=== PATIENT | female | born 1945 | race American Indian/Alaskan Native ===

== ENCOUNTER 2017-06-21 18:34 | Emergency (ER) | payer MEDICARE ==
[2017-06-21 18:34] VITALS: BMI 41.8
[2017-06-21 18:42] VITALS: BP 150/85; PULSE 71; RESP 16; TEMP 98.2; O2SAT 96
[2017-06-21] MEDS ORDERED: TDAP Vaccine 0.5 mL Syr IM ONE (19:07)
--- NOTE | 2017-06-21 19:10 | ED PDOC ---
Arrival/HPI - General Chief Complaint: Abnormal Skin Integrity Time Seen by Provider: 06/21/17 19:07 Historian: Patient - History of Present Illness Narrative History of Present Illness (Text): 06/21/17 19:07 This 71 yo female presents to this emergency department complaining of left index finger laceration x [employer]. Patient stated while attempting to cut with a "clean kitchen knife", she accidentally cut left index finger tip. Patient denies other somatic complains. Last tetanus is ukn. Patient stated she is afraid of "needles", and she refused to have sutures, but she is asking for "glue" Time/Duration: Other (see hpi) Context: Home Past Medical History - Provider Review Nursing Documentation Reviewed: Yes - Infectious Disease Hx of Infectious Diseases: None - Cardiac Hx Cardiac Disorders: Yes Hx Hypertension: Yes - Pulmonary Hx Respiratory Disorders: Yes Hx Chronic Obstructive Pulmonary Disease (COPD): (sleep apnea) - Neurological Hx Neurological Disorder: No - HEENT Hx HEENT Disorder: No - Renal Hx Renal Disorder: No - Endocrine/Metabolic Hx Endocrine Disorders: No - Hematological/Oncological Hx Blood Disorders: No - Integumentary Hx Dermatological Disorder: No - Musculoskeletal/Rheumatological Hx Musculoskeletal Disorders: Yes Hx Arthritis: Yes - Gastrointestinal Hx Gastrointestinal Disorders: Yes Hx Gastroesophageal Reflux: Yes - Genitourinary/Gynecological Hx Genitourinary Disorders: Yes Other/Comment: FREQUENCY OF URINATION - Psychiatric Hx Psychophysiologic Disorder: No Hx Substance Use: No - Surgical History Other/Comment: BILATERAL KNEE REPLACED YEARS AGO - Anesthesia Hx Anesthesia: Yes Hx Anesthesia Reactions: No Family/Social History - Physician Review Nursing Documentation Reviewed: Yes Family/Social History: Other (noncontributory) Smoking Status: Never Smoked Hx Alcohol Use: No Hx Substance Use: No Allergies/Home Meds Allergies/Adverse Reactions: Allergies No Known Allergies Allergy (Verified 10/21/15 07:48) Home Medications: Home Meds Medication Instructions Recorded Confirmed Aspirin/Calcium Carbonate [Eliceo 1 each PO DAILY 10/21/15 06/21/17 Women's Aspirin Tablet] Furosemide [Lasix] 40 mg PO DAILY 10/21/15 06/21/17 Metoprolol Tartrate 100 mg PO DAILY 10/21/15 06/21/17 Omeprazole 40 mg PO DAILY 10/21/15 06/21/17 Potassium Chloride 20 meq PO DAILY 10/21/15 06/21/17 Simvastatin 10 mg PO DAILY 10/21/15 06/21/17 amLODIPine [Norvasc] 10 mg PO DAILY 10/21/15 06/21/17 Review of Systems - Review of Systems Constitutional: Normal. absent: Fatigue, Weight Change, Fevers Eyes: Normal ENT: Normal Respiratory: Normal Cardiovascular: Normal Gastrointestinal: Normal Genitourinary Female: Normal Musculoskeletal: Normal Skin: Laceration (see hpi) Neurological: Normal Endocrine: Normal Hemo/Lymphatic: Normal Psychiatric: Normal Physical Exam Vital Signs Temp Pulse Resp BP Pulse Ox 06/21/17 18:37 98.2 F 71 16 150/85 96 Temperature: Afebrile Blood Pressure: Normal Pulse: Regular Respiratory Rate: Normal Appearance: Positive for: Well-Appearing, Non-Toxic, Comfortable Pain Distress: None Mental Status: Positive for: Alert and Oriented X 3 - Systems Exam Head: Present: Atraumatic, Normocephalic Pupils: Present: PERRL Extroacular Muscles: Present: EOMI Conjunctiva: Present: Normal Mouth: Present: Moist Mucous Membranes Upper Extremity: Present: Normal ROM, NORMAL PULSES, Neurovascularly Intact, Capillary Refill < 2s, Other ((+) transverse superficial laceration on left 2nd finger, palmar aspect. No actively bleeding.). No: Cyanosis, Edema, Tenderness , Swelling, Erythema Lower Extremity: Present: Normal Inspection Neurological: Present: GCS=15, CN II-XII Intact, Speech Normal, Motor Func Grossly Intact, Normal Sensory Function, Normal Cerebellar Funct, Gait Normal, Memory Normal Skin: Present: Warm, Dry, Normal Color. No: Rashes Psychiatric: Present: Alert, Oriented x 3, Normal Insight, Normal Concentration Medical Decision Making ED Course and Treatment: 06/21/17 19:50 Re-evaluation. Patient feels better. Discussed results and plan with patient who expresses understanding. All questions answered and there is agreement with the plan to discharge home with instructions. Patient stable for discharge. Return if symptoms persist or worsen. Patient refused sutures. She preferred glue. Dermabond was use to approximate wound. Patient was recommended to follow up pmd in 2-3 days for wound check. To return to emergency department if wound becomes infected. Re-evaluation Time: 19:50 Reassessment Condition: Re-examined, Improved - Medication Orders Current Medication Orders: Discontinued Medications Cephalexin Monohydrate (Keflex) 500 mg PO STAT STA PRN Reason: Protocol Stop: 06/21/17 19:08 Last Admin: 06/21/17 19:17 Dose: 500 mg Tetanus/Reduced Diphtheria/Acell Pertussis (Boostrix Vaccine Inj) 0.5 ml IM .ONCE ONE Stop: 06/21/17 19:08 Last Admin: 06/21/17 19:17 Dose: 0.5 ml MAR Immunization Data Document 06/21/17 19:17 [place] (Rec: 06/21/17 19:17 [place] [id number] Immunization Data Vaccine Information Sheet Given Yes Immunization Registry Document 06/21/17 19:17 [place] (Rec: 06/21/17 19:17 [place] [id number] Immunization Registry Consent Date 05/15/17 Disposition/Present on Arrival - Present on Arrival Any Indicators Present on Arrival: No History of DVT/PE: No History of Uncontrolled Diabetes: No Urinary Catheter: No History of Decub. Ulcer: No History Surgical Site Infection Following: None - Disposition Have Diagnosis and Disposition been Completed?: Yes Diagnosis: Finger laceration Disposition: HOME/ ROUTINE Disposition Time: 19:54 Patient Plan: Discharge Condition: GOOD Discharge Instructions (ExitCare): Laceration Repair With Glue (DC) Additional Instructions: Call private doctor for follow up visit in 2-3 days. keep wound clean and dry for 3 days, then clean wound with soap and water. Do not apply Vaseline or cream or topical antibiotic on the glue. Return to emergency if wound becomes infected. Prescriptions: Cephalexin [cephalexin] 500 mg PO QID #20 cap Referrals: Denise Kathleen MD [Primary Care Provider] - Follow up with primary Forms: [email or web address] ([employer])
== END 2017-06-21 20:05 | disposition home or self-care (01) ==
LOC: ED 18:34
DX: S61.211A Laceration without foreign body of left index finger without damage to nail, initial encounter (principal); W26.0XXA Contact with knife, initial encounter; Y92.009 Unspecified place in unspecified non-institutional (private) residence as the place of occurrence of the external cause; I10 Essential (primary) hypertension; J44.9 Chronic obstructive pulmonary disease, unspecified; G47.30 Sleep apnea, unspecified; Z23 Encounter for immunization

== ENCOUNTER 2018-02-17 08:25 | Observation (INO) | payer MEDICARE, OTHER ==
--- NOTE | 2018-02-17 08:40 | ED PDOC ---
Arrival/HPI - General Chief Complaint: Shortness Of Breath Time Seen by Provider: 02/17/18 08:27 Historian: Patient - History of Present Illness Narrative History of Present Illness (Text): 02/17/18 08:40 72 f with pmhx of hypertension and PVCs presents to the ED with shortness of breath and palpitations since earlier this morning. Patient reports she thought she heard someone screaming and realized it was herself. Patient states she is currently not experiencing any palpitations. Patient notes the swelling in her legs is normal. Patient denies fever, chest pain, nausea, vomiting or any other complaints. PMD: Denise Frazier Time/Duration: 4-6 hours (earlier this morning) Symptom Onset: Sudden Symptom Course: Improving Activities at Onset: Light Context: Home Past Medical History - Provider Review Nursing Documentation Reviewed: Yes - Infectious Disease Hx of Infectious Diseases: None - Reproductive Menopause: Yes - Cardiac Hx Cardiac Disorders: Yes Hx Hypertension: Yes - Pulmonary Hx Respiratory Disorders: Yes Hx Chronic Obstructive Pulmonary Disease (COPD): (sleep apnea) - Neurological Hx Neurological Disorder: No - HEENT Hx HEENT Disorder: No - Renal Hx Renal Disorder: No - Endocrine/Metabolic Hx Endocrine Disorders: No - Hematological/Oncological Hx Blood Disorders: No - Integumentary Hx Dermatological Disorder: No - Musculoskeletal/Rheumatological Hx Musculoskeletal Disorders: Yes Hx Arthritis: Yes - Gastrointestinal Hx Gastrointestinal Disorders: Yes Hx Gastroesophageal Reflux: Yes - Genitourinary/Gynecological Hx Genitourinary Disorders: Yes Other/Comment: FREQUENCY OF URINATION - Psychiatric Hx Psychophysiologic Disorder: No Hx Substance Use: No - Surgical History Other/Comment: BILATERAL KNEE REPLACED YEARS AGO - Anesthesia Hx Anesthesia: Yes Hx Anesthesia Reactions: No Hx Malignant Hyperthermia: No Family/Social History - Physician Review Nursing Documentation Reviewed: Yes Family/Social History: No Known Family HX Smoking Status: Never Smoked Hx Alcohol Use: No Hx Substance Use: No Allergies/Home Meds Allergies/Adverse Reactions: Allergies No Known Allergies Allergy (Verified 02/17/18 08:36) Home Medications: Home Meds Medication Instructions Recorded Confirmed Aspirin/Calcium Carbonate [Eliceo 1 each PO DAILY 10/21/15 02/17/18 Women's Aspirin Tablet] RX: Metoprolol Tartrate 100 mg PO BID 10/21/15 02/17/18 RX: Simvastatin 10 mg PO DAILY 10/21/15 02/17/18 amLODIPine [Norvasc] 10 mg PO DAILY 10/21/15 02/17/18 Losartan [Cozaar] 100 mg PO DAILY 02/17/18 02/17/18 hydroCHLOROthiazide [Microzide] 25 mg PO DAILY 02/17/18 02/17/18 Review of Systems - Physician Review All systems were reviewed & negative as marked: Yes - Review of Systems Constitutional: absent: Fevers Respiratory: SOB Cardiovascular: Palpitations. absent: Chest Pain Gastrointestinal: absent: Nausea, Vomiting Physical Exam - Physical Exam Narrative Physical Exam (Text): 02/17/18 08:41 Gen: VS reviewed, alert, well developed, well nourished, nontoxic, mild distress Eye: EOMI, PERRL Neck: no JVD, supple, no adenopathy CV: regular rate, regular rhythm, no rubs,no murmur, S1, S2 Pulm: no distress, clear to auscultation, no wheeze, no rhonchi, breath sounds equal, no rales Abd: soft, nontender, no guarding, no rebound, no rigidity Ext: no edema Skin: good color, no rash, no cyanosis Psych: responds appropriately to questions, normal affect Neuro: oriented x3, CN2-12 intact grossly, motor intact, sensation intact Vital Signs Reviewed: Yes Vital Signs Pulse Resp BP Pulse Ox 02/17/18 08:31 57 L 19 145/95 H 100 Blood Pressure: Hypertensive Pulse: Tachycardic Respiratory Rate: Normal Appearance: Positive for: Well-Appearing, Non-Toxic, Comfortable Pain Distress: None Medical Decision Making ED Course and Treatment: 02/17/18 08:45 02/17/18 11:[address] simmons to the hospitalist service. patient to be admitted for recurrent palpitations. patient found to have an ekg concerning for ischemia which appears to be new when compared to old ekg on file. will admit for cardiac workup. - RAD Interpretation Narrative RAD Interpretations (Text): 02/17/18 11:14 Procedure: Chest X-ray Time: 02/17/2018 11:07:17 Dictator: Carolyn Laguna MD Impression: Mild pulmonary venous congestion. Mild bibasilar atelectasis. Lingular linear atelectasis versus small fluid in the fissure. 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 I have reviewed the chart and agree that the record accurately reflects my personal performance of the history, physical exam, medical decision making, and the department course for this patient. I have also personally directed, reviewed, and agree with the discharge instructions and disposition. Disposition/Present on Arrival - Present on Arrival Any Indicators Present on Arrival: No History of DVT/PE: No History of Uncontrolled Diabetes: No Urinary Catheter: No History of Decub. Ulcer: No History Surgical Site Infection Following: None - Disposition Have Diagnosis and Disposition been Completed?: Yes Diagnosis: Palpitations, Abnormal EKG Disposition: HOME/ ROUTINE Disposition Time: 11:03 Patient Plan: Observation Patient Problems: Current Active Problems Problem Status Onset Abnormal EKG Acute Palpitations Acute Condition: STABLE
[2018-02-17 09:02] LABS: BASO # 0.02 K/mm3 (0.0-2.0); BASO % 0.2 % (0.0-3.0); EOS % 0.1 % (1.5-5.0); GRAN # 5.9 (1.4-6.5); GRAN % 57.6 % (50.0-68.0); LYMPH # 3.7 (1.2-3.4); LYMPH % 35.8 % (22.0-35.0); MEAN CELL VOLUME 84.5 fl (80.0-105.0); MEAN CORPUSCULAR HEMOGLOBIN 27.1 pg (25.0-35.0); MEAN CORPUSCULAR HGB CONC 32.1 g/dl (31.0-37.0); MEAN PLATELET VOLUME 9.6 fl (7.0-11.0); MONO # 0.6 (0.1-0.6); MONO % 6.3 % (1.0-6.0); RBC 5.16 10^6/uL (3.5-6.1); RED CELL DISTRIBUTION WIDTH 13.7 % (11.5-14.5); WHITE BLOOD COUNT 10.2 10^3/uL (4.5-11.0)
[2018-02-17 09:09] LABS: INR 0.99; PARTIAL THROMBOPLASTIN TIME 25.8 Seconds (25.1-36.5); PROTHROMBIN TIME 11.4 SECONDS (9.4-12.5)
[2018-02-17 09:13] LABS: ALB/GLOB RATIO 1.5 (1.1-1.8); ALBUMIN 4.6 g/dL (3.0-4.8); ALT/SGPT 24 U/L (7-56); AST/SGOT 26 U/L (14-36); BLOOD UREA NITROGEN 13 mg/dL (7-21); CALCIUM 9.4 mg/dL (8.4-10.5); GFR NON-AFRICAN AMERICAN > 60
[2018-02-17 09:23] LABS: B-TYPE NATRIURETIC PEPTIDE 253 pg/mL (0-450); TROPONIN I < 0.01 ng/mL
--- NOTE | 2018-02-17 11:11 | RAD ---
HISTORY: chest pain COMPARISON: Chest x-ray performed 04/26/15 TECHNIQUE: Chest, one view. FINDINGS: Examination limited by habitus. LUNGS: Mild pulmonary venous congestion. Mild bibasilar atelectasis. Lingular linear atelectasis versus small fluid in the fissure. Please note that chest x-ray has limited sensitivity for the detection of pulmonary masses. PLEURA: No significant pleural effusion identified. No definite pneumothorax . CARDIOVASCULAR: Mild cardiomegaly. Ectatic aorta. OSSEOUS STRUCTURES: Mild degenerative changes. VISUALIZED UPPER ABDOMEN: Unremarkable. OTHER FINDINGS: None. IMPRESSION: Mild pulmonary venous congestion. Mild bibasilar atelectasis. Lingular linear atelectasis versus small fluid in the fissure.
[2018-02-17] MEDS ORDERED: Potassium Chloride 40 mEq/30 ml LIQ UD PO ONE (12:02)
--- NOTE | 2018-02-17 12:13 | CP.PCM.HP ---
<Herminio Cannonil - Last Filed: 02/17/18 12:29> History of Present Illness - History of Present Illness History of Present Illness: Kashmir Cannon Internal Medicine Resident- H&P on Behalf of the Hospitalist Team Subjective: CC: Palpitations HPI: Patient is a 72 year old female with a past medical history of hypertension, hyperlipidemia, uterine fibroids, osteoarthritis, TON who presents to the emergency department for evaluation and treatment of palpitations which began 2 days ago with no specific provoking events. States she experienced episodes of palpitations 2 years ago with an outpatient work up which revealed no clear etiology. Palpitations occurred intermittently throughout the past 2 days and resolved after eating. Admits to associated SOB. Denies associated chest pain and dizziness. Further denies fever, chills, headache, visual/auditory changes from baseline, abdominal pain, nausea, vomiting, diarrhea, constipation, and urinary symptoms. 12 Point ROS negative except as indicated in the HPI Past medical history: hypertension, hyperlipidemia, uterine fibroids, osteoarthritis, TON Past surgical history: total hysterectomy Allergies: NKDA Primary Care Physician: Dr. Escalante Cardiology: Dr. Quintero Medications: lopressor tartrate 100mg BID, HCTZ 25 mg PO daily, Losartan 100mg Daily, Simvastatin 10mg QHS, Aspirin 81mg, Amlodipine 10mg Daily Physical Examination: - Constitutional Appears: Non-toxic, No Acute Distress - Eye Exam Eye Exam: EOMI - ENT Exam ENT Exam: Mucous Membranes Moist - Neck Exam Neck Exam: Full ROM - Respiratory Exam Respiratory Exam: Clear to Auscultation Bilateral, NORMAL BREATHING PATTERN - Cardiovascular Exam Cardiovascular Exam: Bradycardic, REGULAR RHYTHM, +S1, +S2 - GI/Abdominal Exam GI & Abdominal Exam: Soft, Normal Bowel Sounds. absent: Tenderness - Extremities Exam Extremities Exam: no clubbing, no cyanosis, no edema - Neurological Exam Neurological Exam: Alert, Awake, Oriented x3 - Psychiatric Exam Psychiatric exam: Normal Affect, Normal Mood - Skin Skin Exam: Dry, Intact, Normal Color, Warm Assessment and Plan: HPI: Patient is a 72 year old female with a past medical history of hypertension, hyperlipidemia, uterine fibroids, osteoarthritis, TON who was admitted for evaluation and treatment of palpitations. Palpitations - EKG revealed Sinus bradycardia 53 beats per minute, QTc 399ms, t wave inversions in leads II, V3-V6- new compared to old EKG from 2016 - troponins < 0.01, trend q6h x 2, ekgs q6h x 2 - TSH ordered and pending - cardiology consulted (Dr. Quintero)- appreciate recommendations Hypertension - BP stable 140s/90s - continue home lopressor, hctz, losartan, and amlodipine with holding parameters Hyperlipidemia - continue home simvastatin 10mg PO daiy TON - continue home CPAP setting 12 Hypokalemia - potassium is 3.5 on admission, mag WNL - repleted with KCl 40mEq PO x 1 - will monitor closely via CMP Prophylaxis - DVT- SCDs - GI- not indicated Patient seen, case discussed with, and plan approved by attending physician, Dr. Krista Cannon. Present on Admission - Present on Admission Any Indicators Present on Admission: No Past Patient History - Infectious Disease Hx of Infectious Diseases: None - Past Medical History & Family History Past Medical History?: Yes - Past Social History Smoking Status: Never Smoked - CARDIAC Hx Cardiac Disorders: Yes Hx Hypertension: Yes - PULMONARY Hx Respiratory Disorders: Yes Hx Chronic Obstructive Pulmonary Disease (COPD): (sleep apnea) - NEUROLOGICAL Hx Neurological Disorder: No - HEENT Hx HEENT Problems: No - RENAL Hx Chronic Kidney Disease: No - ENDOCRINE/METABOLIC Hx Endocrine Disorders: No - HEMATOLOGICAL/ONCOLOGICAL Hx Blood Disorders: No - INTEGUMENTARY Hx Dermatological Problems: No - MUSCULOSKELETAL/RHEUMATOLOGICAL Hx Musculoskeletal Disorders: Yes Hx Arthritis: Yes - GASTROINTESTINAL Hx Gastrointestinal Disorders: Yes Hx Gastroesophageal Reflux: Yes - GENITOURINARY/GYNECOLOGICAL Hx Genitourinary Disorders: Yes Other/Comment: FREQUENCY OF URINATION - PSYCHIATRIC Hx Psychophysiologic Disorder: No Hx Substance Use: No - SURGICAL HISTORY Other/Comment: BILATERAL KNEE REPLACED YEARS AGO - ANESTHESIA Hx Anesthesia: Yes Hx Anesthesia Reactions: No Hx Malignant Hyperthermia: No Meds Allergies/Adverse Reactions: Allergies Allergy/AdvReac Type Severity Reaction Status Date / Time No Known Allergies Allergy Verified 02/17/18 08:36 Results - Vital Signs Recent Vital Signs: Last Vital Signs Temp 97.4 F L 02/17/18 08:25 Pulse 57 L 02/17/18 08:31 Resp 11 L 02/17/18 08:59 BP 145/95 H 02/17/18 08:31 Pulse Ox 100 02/17/18 08:31 - Labs Result Diagrams: 02/17/18 08:50 02/17/18 08:50 Labs: Laboratory Results - last 24 hr 02/17/18 02/17/18 02/17/18 08:50 08:50 08:50 WBC 10.2 RBC 5.16 Hgb 14.0 Hct 43.6 MCV 84.5 MCH 27.1 MCHC 32.1 RDW 13.7 Plt Count 318 MPV 9.6 Gran % 57.6 Lymph % (Auto) 35.8 H [place] % (Auto) 6.3 H Eos % (Auto) 0.1 L Baso % (Auto) 0.2 Gran # 5.90 Lymph # (Auto) 3.7 H [place] # (Auto) 0.6 Eos # (Auto) 0.0 Baso # (Auto) 0.02 PT 11.4 INR 0.99 APTT 25.8 Sodium 142 Potassium 3.5 L Chloride 104 Carbon Dioxide 30 Anion Gap 12 BUN 13 Creatinine 0.6 L Est GFR ( Amer) > 60 Est GFR (Non-Af Amer) > 60 Random Glucose 101 Calcium 9.4 Magnesium 2.0 Total Bilirubin 0.4 AST 26 ALT 24 Alkaline Phosphatase 90 Troponin I < 0.01 NT-Pro-B Natriuret Pep 253 Total Protein 7.7 Albumin 4.6 Globulin 3.1 Albumin/Globulin Ratio 1.5 TSH 3rd Generation 02/17/18 08:50 WBC RBC Hgb Hct MCV MCH MCHC RDW Plt Count MPV Gran % Lymph % (Auto) [place] % (Auto) Eos % (Auto) Baso % (Auto) Gran # Lymph # (Auto) [place] # (Auto) Eos # (Auto) Baso # (Auto) PT INR APTT Sodium Potassium Chloride Carbon Dioxide Anion Gap BUN Creatinine Est GFR ( Amer) Est GFR (Non-Af Amer) Random Glucose Calcium Magnesium Total Bilirubin AST ALT Alkaline Phosphatase Troponin I NT-Pro-B Natriuret Pep Total Protein Albumin Globulin Albumin/Globulin Ratio TSH 3rd Generation 0.57 <Krista Cannon R - Last Filed: 02/17/18 15:03> Results - Vital Signs Recent Vital Signs: Last Vital Signs Temp 97.4 F L 02/17/18 08:25 Pulse 65 02/17/18 13:22 Resp 18 02/17/18 13:22 BP 113/56 L 02/17/18 13:01 Pulse Ox 97 02/17/18 13:01 - Labs Result Diagrams: 02/17/18 08:50 02/17/18 08:50 Labs: Laboratory Results - last 24 hr 02/17/18 02/17/18 02/17/18 08:50 08:50 08:50 WBC 10.2 RBC 5.16 Hgb 14.0 Hct 43.6 MCV 84.5 MCH 27.1 MCHC 32.1 RDW 13.7 Plt Count 318 MPV 9.6 Gran % 57.6 Lymph % (Auto) 35.8 H [place] % (Auto) 6.3 H Eos % (Auto) 0.1 L Baso % (Auto) 0.2 Gran # 5.90 Lymph # (Auto) 3.7 H [place] # (Auto) 0.6 Eos # (Auto) 0.0 Baso # (Auto) 0.02 PT 11.4 INR 0.99 APTT 25.8 Sodium 142 Potassium 3.5 L Chloride 104 Carbon Dioxide 30 Anion Gap 12 BUN 13 Creatinine 0.6 L Est GFR ( Amer) > 60 Est GFR (Non-Af Amer) > 60 Random Glucose 101 Calcium 9.4 Magnesium 2.0 Total Bilirubin 0.4 AST 26 ALT 24 Alkaline Phosphatase 90 Troponin I < 0.01 NT-Pro-B Natriuret Pep 253 Total Protein 7.7 Albumin 4.6 Globulin 3.1 Albumin/Globulin Ratio 1.5 Triglycerides Cholesterol LDL Cholesterol Direct HDL Cholesterol TSH 3rd Generation 02/17/18 02/17/18 08:50 12:00 WBC RBC Hgb Hct MCV MCH MCHC RDW Plt Count MPV Gran % Lymph % (Auto) [place] % (Auto) Eos % (Auto) Baso % (Auto) Gran # Lymph # (Auto) [place] # (Auto) Eos # (Auto) Baso # (Auto) PT INR APTT Sodium Potassium Chloride Carbon Dioxide Anion Gap BUN Creatinine Est GFR ( Amer) Est GFR (Non-Af Amer) Random Glucose Calcium Magnesium Total Bilirubin AST ALT Alkaline Phosphatase Troponin I NT-Pro-B Natriuret Pep Total Protein Albumin Globulin Albumin/Globulin Ratio Triglycerides 63 Cholesterol 141 LDL Cholesterol Direct 81 HDL Cholesterol 46 TSH 3rd Generation 0.57 Attending/Attestation - Attestation I have personally seen and examined this patient.: Yes I have fully participated in the care of the patient.: Yes I have reviewed all pertinent clinical information: Yes Notes (Text): Patient seen and examined by me with resident at 11:30 AM on 02/17/18. Case including HPI, physical exam, and assessment and plan discussed with resident. Agree with above with following additions/corrections. Patient is a 72-year-old female past medical history significant for hypertension, hyperlipidemia, bilateral knee osteoarthritis, TON on CPAP at bedtime, overactive bladder, vertigo, and fibroids status post hysterectomy that presents to the emergency room with intermittent palpitations. Patient states that palpitations started 2 days ago. Palpitations come and go. Patient is unable to describe how long the palpitations are present before going away. Patient also states that she feels short of breath while she is having the palpitations. She feels it's difficult to take in a deep breath. Patient states that she had the same symptoms approximately 2 years ago. At that time she had a Holter monitor which did not show anything. Patient is following with an subway car repairer Dr. Quintero as an outpatient. Patient states that the palpitations occur at any time and are not associated with anything in particular. Patient did not try any medications at home for this. Patient denies any headaches or dizziness. No change in vision. No chest pain. No fevers or chills. No nausea, vomiting, or abdominal pain. No dysuria. No diarrhea or constipation. Patient with chronic bilateral knee pain secondary to osteoarthritis. Patient states that she is due for bilateral knee replacements. Patient states that she rarely drinks caffeine. 12 point review of systems reviewed by me. Please see above HPI, all other systems negative. Family history: Mother and had uterine cancer. Father and had heart disease. Social history: Patient drinks alcohol socially. Patient is a former smoker and quit approximately 40 years ago. Patient spoke for approximately 1-2 years 1 pac k per day. Patient denies any illicit drug use. Patient uses a cane to ambulate at home. Physical exam: General: Awake and alert lying in bed in no acute distress HEENT: Normocephalic, atraumatic. Extraocular muscles intact, pupils equal and reactive, no scleral icterus. Oropharynx is pink moist. Neck is supple. Hearing grossly intact. Ears and nose externally unremarkable. Cardiovascular: Normal rhythm. Normal S1 and S2. No murmurs, rubs, or gallops appreciated Pulmonary: Normal respiratory effort. No rhonchi, rales, or wheezing appreciated. Gastrointestinal: Soft, nondistended. Nontender. Positive bowel sounds all 4 quadrants. No guarding. Globular abdomen. Musculoskeletal: Moves all extremities. Decreased range of motion bilateral knees. Trace lower extremity edema. No calf tenderness. No CVA tenderness. Central nervous system: AAO 3. CN2-12 grossly intact. Dermatologic: Skin warm and dry. Assessment and plan: Patient is a 72-year-old female past medical history significant for hypertension, hyperlipidemia, bilateral knee osteoarthritis, TON on CPAP at bedtime, overactive bladder, vertigo, and fibroids status post hysterectomy that presents to the emergency room with intermittent palpitations. 1. Palpitations with associated shortness of breath. Unlcear etiology. No chest pain. Minimal caffeine use. T wave inversions in leads 2, V3 through V6. Follow- up troponins. Follow-up TSH. Continue home Lopressor 100 mg 2 times a day. Continue home aspirin. Cardiology, Dr. Quintero, consulted, follow-up recommendations. Monitor on telemetry. 2. Hypokalemia. Patient given oral replacement. Follow-up repeat labs tomorrow. 3. Hypertension. Continue home Lopressor, hydrochlorothiazide, losartan, and Norvasc. 4. Hyperlipidemia. Kidney home simvastatin. 5. TON. Continue home CPAP at bedtime. 6. DVT prophylaxis. Continue home SCDs. 7. Patient is a full code. Case was discussed in detail with patient regarding current diagnosis and treatment plan. All questions answered.
[2018-02-17 12:42] LABS: HDL CHOLESTEROL 46 mg/dL (29-60)
[2018-02-17 12:53] LABS: LDL CHOLESTEROL 81 mg/dL (0-129)
[2018-02-17 13:55] VITALS: BMI 42.9
[2018-02-17] MEDS ORDERED: Pneumococcal 23-Valent Vaccine IM ONE (13:56)
[2018-02-17] MEDS ORDERED: Influenza Vaccine 60 mcg/0.5 mL SYR (4YR UP) IM ONE (13:56)
--- NOTE | 2018-02-17 15:12 | CARD ---
APPROVED REPORT Date of service: 02/17/2018 EKG Measurement Heart [id number] <Conclusion> Normal sinus rhythm Possible Left atrial enlargement Left ventricular hypertrophy Nonspecific T wave abnormality Abnormal ECG
--- NOTE | 2018-02-17 15:18 | CARD ---
APPROVED REPORT Date of service: 02/17/2018 EKG Measurement Heart [id number] <Conclusion> Sinus bradycardia Left ventricular hypertrophy Nonspecific T wave abnormality Abnormal ECG
[2018-02-17 15:50] LABS: TROPONIN I < 0.01 ng/mL
[2018-02-17 17:04] VITALS: O2SAT 96
[2018-02-17 21:09] LABS: TROPONIN I < 0.01 ng/mL
[2018-02-18 07:12] LABS: BASO # 0.02 K/mm3 (0.0-2.0); BASO % 0.2 % (0.0-3.0); EOS # 0.1 (0.0-0.7); EOS % 0.5 % (1.5-5.0); GRAN # 5.27 (1.4-6.5); GRAN % 54.4 % (50.0-68.0); HEMOGLOBIN 13.4 g/dL (12.0-16.0); LYMPH # 3.6 (1.2-3.4); LYMPH % 37.6 % (22.0-35.0); MEAN CELL VOLUME 84.5 fl (80.0-105.0); MEAN CORPUSCULAR HEMOGLOBIN 26.6 pg (25.0-35.0); MEAN CORPUSCULAR HGB CONC 31.5 g/dl (31.0-37.0); MEAN PLATELET VOLUME 9.5 fl (7.0-11.0); MONO # 0.7 (0.1-0.6); MONO % 7.3 % (1.0-6.0); RBC 5.03 10^6/uL (3.5-6.1); RED CELL DISTRIBUTION WIDTH 13.9 % (11.5-14.5); WHITE BLOOD COUNT 9.7 10^3/uL (4.5-11.0)
[2018-02-18 07:29] LABS: ALB/GLOB RATIO 1.3 (1.1-1.8); ALBUMIN 3.8 g/dL (3.0-4.8); ALT/SGPT 27 U/L (7-56); AST/SGOT 21 U/L (14-36); BLOOD UREA NITROGEN 15 mg/dL (7-21); GFR NON-AFRICAN AMERICAN > 60
[2018-02-18 08:17] VITALS: RESP 20; TEMP 97.8
[2018-02-18 09:20] VITALS: BP 130/80; PULSE 66
--- NOTE | 2018-02-18 09:25 | CP.PCM.DIS ---
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 Referral Routine Comment: palpitations Physician Instructions: Reason For Exam: eval Transition In Care/Readmission Reduction Routine Comment: palpitations Physician Instructions: Reason For Exam: eval Time Spent in preparation of Discharge (in minutes): 45 Hospital Course - Lab Results Lab Results: Most Recent Lab Values WBC 9.7 10^3/uL (4.5-11.0) 02/18/18 06:30 RBC 5.03 10^6/uL (3.5-6.1) 02/18/18 06:30 Hgb 13.4 g/dL (12.0-16.0) 02/18/18 06:30 Hct 42.5 % (36.0-48.0) 02/18/18 06:30 MCV 84.5 fl (80.0-105.0) 02/18/18 06:30 MCH 26.6 pg (25.0-35.0) 02/18/18 06:30 MCHC 31.5 g/dl (31.0-37.0) 02/18/18 06:30 RDW 13.9 % (11.5-14.5) 02/18/18 06:30 Plt Count 298 10^3/uL (120.0-450.0) 02/18/18 06:30 MPV 9.5 fl (7.0-11.0) 02/18/18 06:30 Gran % 54.4 % (50.0-68.0) 02/18/18 06:30 Lymph % (Auto) 37.6 % (22.0-35.0) H 02/18/18 06:30 Real % (Auto) 7.3 % (1.0-6.0) H 02/18/18 06:30 Eos % (Auto) 0.5 % (1.5-5.0) L 02/18/18 06:30 Baso % (Auto) 0.2 % (0.0-3.0) 02/18/18 06:30 Gran # 5.27 (1.4-6.5) 02/18/18 06:30 Lymph # (Auto) 3.6 (1.2-3.4) H 02/18/18 06:30 Real # (Auto) 0.7 (0.1-0.6) H 02/18/18 06:30 Eos # (Auto) 0.1 (0.0-0.7) 02/18/18 06:30 Baso # (Auto) 0.02 K/mm3 (0.0-2.0) 02/18/18 06:30 PT 11.4 SECONDS (9.4-12.5) 02/17/18 08:50 INR 0.99 02/17/18 08:50 APTT 25.8 Seconds (25.1-36.5) 02/17/18 08:50 Sodium 139 mmol/L (132-148) 02/18/18 06:30 Potassium 3.8 mmol/L (3.6-5.0) 02/18/18 06:30 Chloride 104 mmol/L (98-107) 02/18/18 06:30 Carbon Dioxide 29 mmol/L (21-33) 02/18/18 06:30 Anion Gap 11 (10-20) 02/18/18 06:30 BUN 15 mg/dL (7-21) 02/18/18 06:30 Creatinine 0.7 mg/dl (0.7-1.2) 02/18/18 06:30 Est GFR ( Amer) > 60 02/18/18 06:30 Est GFR (Non-Af Amer) > 60 02/18/18 06:30 Random Glucose 103 mg/dL (70-110) 02/18/18 06:30 Calcium 9.0 mg/dL (8.4-10.5) 02/18/18 06:30 Magnesium 2.0 mg/dL (1.7-2.2) 02/17/18 08:50 Total Bilirubin 0.4 mg/dL (0.2-1.3) 02/18/18 06:30 AST 21 U/L (14-36) 02/18/18 06:30 ALT 27 U/L (7-56) 02/18/18 06:30 Alkaline Phosphatase 69 U/L (38-126) 02/18/18 06:30 Lactate Dehydrogenase 396 U/L (333-699) 02/17/18 20:42 Total Creatine Kinase 67 U/L (35-230) 02/17/18 20:42 Troponin I < 0.01 ng/mL 02/17/18 20:42 NT-Pro-B Natriuret Pep 253 pg/mL (0-450) 02/17/18 08:50 Total Protein 6.8 g/dL (5.8-8.3) 02/18/18 06:30 Albumin 3.8 g/dL (3.0-4.8) 02/18/18 06:30 Globulin 2.9 gm/dL 02/18/18 06:30 Albumin/Globulin Ratio 1.3 (1.1-1.8) 02/18/18 06:30 Triglycerides 63 mg/dL (35-160) 02/17/18 12:00 Cholesterol 141 mg/dL (130-200) 02/17/18 12:00 LDL Cholesterol Direct 81 mg/dL (0-129) 02/17/18 12:00 HDL Cholesterol 46 mg/dL (29-60) 02/17/18 12:00 TSH 3rd Generation 0.57 mIU/mL (0.46-4.68) 02/17/18 08:50 - Hospital Course Hospital Course: Patient is a 72 year old female with a past medical history of hypertension, hyperlipidemia, uterine fibroids, osteoarthritis, TON who was admitted for evaluation and treatment of palpitations. EKG was reviewed and showed Sinus bradycardia 53 beats per minute, QTc 399ms, t wave inversions in leads II, V3-V6- new compared to old EKG from 2016. Trop were trended and negative x3. Repeat EKG was done and did not show any changes from initial EKG on presentation. No acute overnight events. TSH was normal, EP Cardio Dr. Galarza was consulted. Electrolytes were repleted as necessary. The palpitations resolved and patient was told to follow up on MondayFebruary 19 with her tree cutter Dr. Galarza for possible holter monitor and stress test. Medications were not changed . Discharge Exam - Head Exam Head Exam: ATRAUMATIC, NORMAL INSPECTION, NORMOCEPHALIC - Eye Exam Eye Exam: EOMI, Normal appearance Pupil Exam: NORMAL ACCOMODATION - Respiratory Exam Respiratory Exam: Clear to PA & Lateral - Cardiovascular Exam Cardiovascular Exam: REGULAR RHYTHM Discharge Plan - Follow Up Plan Condition: STABLE Disposition: HOME/ ROUTINE Instructions: Shortness of Breath (Dyspnea) (DC), Chest Pain (DC) Additional Instructions: Please follow up in the office for possible Holter Monitor and stress test with Dr. Galarza tomorrow. Please return to the ED if symptoms return. Continue meds as previously prescribed. 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 Routine Comment: palpitations Physician Instructions: Reason For Exam: eval Transition In Care/Readmission Reduction Routine Comment: palpitations Physician Instructions: Reason For Exam: eval Hospital Course - Lab Results Lab Results: Most Recent Lab Values WBC 9.7 10^3/uL (4.5-11.0) 02/18/18 06:30 RBC 5.03 10^6/uL (3.5-6.1) 02/18/18 06:30 Hgb 13.4 g/dL (12.0-16.0) 02/18/18 06:30 Hct 42.5 % (36.0-48.0) 02/18/18 06:30 MCV 84.5 fl (80.0-105.0) 02/18/18 06:30 MCH 26.6 pg (25.0-35.0) 02/18/18 06:30 MCHC 31.5 g/dl (31.0-37.0) 02/18/18 06:30 RDW 13.9 % (11.5-14.5) 02/18/18 06:30 Plt Count 298 10^3/uL (120.0-450.0) 02/18/18 06:30 MPV 9.5 fl (7.0-11.0) 02/18/18 06:30 Gran % 54.4 % (50.0-68.0) 02/18/18 06:30 Lymph % (Auto) 37.6 % (22.0-35.0) H 02/18/18 06:30 Real % (Auto) 7.3 % (1.0-6.0) H 02/18/18 06:30 Eos % (Auto) 0.5 % (1.5-5.0) L 02/18/18 06:30 Baso % (Auto) 0.2 % (0.0-3.0) 02/18/18 06:30 Gran # 5.27 (1.4-6.5) 02/18/18 06:30 Lymph # (Auto) 3.6 (1.2-3.4) H 02/18/18 06:30 Real # (Auto) 0.7 (0.1-0.6) H 02/18/18 06:30 Eos # (Auto) 0.1 (0.0-0.7) 02/18/18 06:30 Baso # (Auto) 0.02 K/mm3 (0.0-2.0) 02/18/18 06:30 PT 11.4 SECONDS (9.4-12.5) 02/17/18 08:50 INR 0.99 02/17/18 08:50 APTT 25.8 Seconds (25.1-36.5) 02/17/18 08:50 Sodium 139 mmol/L (132-148) 02/18/18 06:30 Potassium 3.8 mmol/L (3.6-5.0) 02/18/18 06:30 Chloride 104 mmol/L (98-107) 02/18/18 06:30 Carbon Dioxide 29 mmol/L (21-33) 02/18/18 06:30 Anion Gap 11 (10-20) 12/16/18 06:30 BUN 15 mg/dL (7-21) 02/18/18 06:30 Creatinine 0.7 mg/dl (0.7-1.2) 02/18/18 06:30 Est GFR ( Amer) > 60 02/18/18 06:30 Est GFR (Non-Af Amer) > 60 02/18/18 06:30 Random Glucose 103 mg/dL (70-110) 02/18/18 06:30 Hemoglobin A1c 6.5 % (4.2-6.5) 02/17/18 12:30 Calcium 9.0 mg/dL (8.4-10.5) 02/18/18 06:30 Magnesium 2.0 mg/dL (1.7-2.2) 02/17/18 08:50 Total Bilirubin 0.4 mg/dL (0.2-1.3) 02/18/18 06:30 AST 21 U/L (14-36) 02/18/18 06:30 ALT 27 U/L (7-56) 02/18/18 06:30 Alkaline Phosphatase 69 U/L (38-126) 02/18/18 06:30 Lactate Dehydrogenase 396 U/L (333-699) 02/17/18 20:42 Total Creatine Kinase 67 U/L (35-230) 02/17/18 20:42 Troponin I < 0.01 ng/mL 02/17/18 20:42 NT-Pro-B Natriuret Pep 253 pg/mL (0-450) 02/17/18 08:50 Total Protein 6.8 g/dL (5.8-8.3) 02/18/18 06:30 Albumin 3.8 g/dL (3.0-4.8) 02/18/18 06:30 Globulin 2.9 gm/dL 02/18/18 06:30 Albumin/Globulin Ratio 1.3 (1.1-1.8) 02/18/18 06:30 Triglycerides 63 mg/dL (35-160) 02/17/18 12:00 Cholesterol 141 mg/dL (130-200) 02/17/18 12:00 LDL Cholesterol Direct 81 mg/dL (0-129) 02/17/18 12:00 HDL Cholesterol 46 mg/dL (29-60) 02/17/18 12:00 TSH 3rd Generation 0.57 mIU/mL (0.46-4.68) 02/17/18 08:50 Attending/Attestation - Attestation I have personally seen and examined this patient.: Yes I have fully participated in the care of the patient.: Yes I have reviewed all pertinent clinical information, including history, physical exam and plan: Yes Notes (Text): 02/18/18 15:12 attending note; patient seen and examined with resident. Patient is alert and awake. Denies any chest pain, shortness of breath. Denies any palpitations. Tolerating diet well. Patient is a 72-year old female with a past medical history of hypertension, hyperlipidemia, uterine fibroids, osteoarthritis, TON who presents to the emergency department for evaluation and treatment of palpitations which began 2 days ago. admitted to telemetry and monitored. No tachycardic episodes noted. EKG showed normal sinus rhythm. Cardiac enzymes 3 negative. Case discussed with tree cutter Dr. Montero in detail. continue metoprolol. patient will be discharged today. She'll follow-up with tree cutter tomorrow for possible Holter an outpatient stress test. patient spoke to the tree cutter and agreed with the above plan. follow-up with PMD Dr. Kathleen.
--- NOTE | 2018-02-18 18:48 | CARD ---
APPROVED REPORT Date of service: 02/17/2018 EKG Measurement Heart [id number] <Conclusion> Sinus bradycardia Possible Left atrial enlargement Nonspecific T wave abnormality Abnormal ECG
== END 2018-02-18 10:17 | disposition home or self-care (01) ==
LOC: ED 08:25 → ERH 11:09 → 3RSO 13:21
PROVIDERS: ADMIT Hospitalist; ATTEND Hospitalist
DX: R00.1 Bradycardia, unspecified (principal); I10 Essential (primary) hypertension; M17.0 Bilateral primary osteoarthritis of knee; J44.9 Chronic obstructive pulmonary disease, unspecified; E87.6 Hypokalemia; N32.81 Overactive bladder; G47.33 Obstructive sleep apnea (adult) (pediatric); E78.5 Hyperlipidemia, unspecified; Z87.891 Personal history of nicotine dependence; Z90.710 Acquired absence of both cervix and uterus
CPT/HCPCS: 36415; 71045; 80053; 80061; 82550; 83036; 83615; 83735; 83880; 84443; 84484; 85025; 85610; 85730; 93005; 94660; 99285; G0378; J3480

== ENCOUNTER 2018-05-21 11:14 | Outpatient (CLI) | payer MEDICARE, OTHER | END 2018-05-21 11:15 | disposition home or self-care (01) | LOC: LAB 11:14 ==

== ENCOUNTER 2018-05-28 13:16 | Outpatient (CLI) | payer MEDICARE, OTHER | END 2018-05-28 13:17 | disposition home or self-care (01) | LOC: RAD 13:16 ==

== ENCOUNTER 2018-06-27 09:44 | Outpatient (CLI) | payer MEDICARE | END 2018-06-27 09:45 | disposition home or self-care (01) | LOC: RAD 09:44 ==